=== PATIENT | male | born 1970 | race Caucasian/White ===

== ENCOUNTER 2020-01-21 06:25 | Emergency (ER) | payer OTHER ==
[~2020-01-21] VITALS: Ht 182.9 cm; Wt 108.9 kg
[2020-01-21] MEDS ORDERED: IBUP400 PO (07:42)
[2020-01-21] MEDS ORDERED: Cyclobenzaprine5 MG PO (07:42)
[2020-01-21] MEDS ORDERED: Percocet 5-3251 EACH PO (07:42)
== END 2020-01-21 07:45 | disposition home or self-care (01) ==
LOC: ER 06:25
DX: M54.5 Low back pain (principal); X58.XXXA Exposure to other specified factors, initial encounter; Y93.89 Activity, other specified
CPT/HCPCS: 72100; 96372; 99283-25; J1170